=== PATIENT | male | born 2000 | race Caucasian/White ===

== ENCOUNTER 2023-06-24 15:16 | Outpatient (REF) | payer OTHER, SELFPAY ==
--- NOTE | ~2023-06-24 | MR_ITS ---
MR LUMBAR SPINE WITHOUT CONTRAST CLINICAL INFORMATION: Low back pain and radiculopathy. COMPARISON: None available. TECHNIQUE: MRI of the lumbar spine was obtained using routine sequences without contrast. FINDINGS: There are 5 nonrib-bearing lumbar-type vertebral bodies. Lumbar alignment is maintained. There is mild disc volume loss and partial disc desiccation at L4-L5 and L5-S1. The remaining disc volumes are preserved and the remaining discs remain well-hydrated. There is no bone marrow edema. There are no acute fractures. Shallow endplate Schmorl's nodes at the L2-L5 levels. Conus terminates at the L1 level. There are no significant extraspinal soft tissue findings. The L1-L2 and the L2-L3 disc contours remain within normal limits. There is no central canal stenosis and there is no foraminal stenosis at these levels. L3-L4: There is a small diffuse annular disc bulge and there is mild bilateral hypertrophic facet arthropathy. There is no central canal stenosis and there is no significant foraminal stenosis. L4-L5: There is a diffuse annular disc bulge with a superimposed broad-based shallow central disc protrusion that results in moderate central canal stenosis as well as severe bilateral subarticular zone stenosis with compression of the traversing L5 nerve roots bilaterally. Disc and moderate facet arthropathy result in mild bilateral foraminal encroachment. L5-S1: Diffuse annular disc bulge eccentric to the right and moderate bilateral facet arthropathy resulting in narrowing of the right subarticular zone and mild mass effect on the traversing right S1 nerve root. The central canal remains patent and there is mild foraminal encroachment bilaterally. MR/MR lumbar spine wo con IMPRESSION: - At L4-L5, a broad-based shallow central disc protrusion results in moderate central canal stenosis as well as severe bilateral subarticular zone stenosis with compression of the traversing L5 nerve roots bilaterally. - At L5-S1, multifactorial degenerative changes result in right subarticular zone stenosis and mild mass effect on the traversing right S1 nerve root.
== END 2023-06-24 15:17 | disposition home or self-care (01) ==
LOC: HO.MRI 15:16
PROVIDERS: Visit Provider Family Medicine Sports Medicine
DX: M54.50 Low back pain, unspecified (principal); M54.16 Radiculopathy, lumbar region
CPT/HCPCS: 72148